=== PATIENT | male | born 1975 | race African-American/Black ===

== ENCOUNTER 2017-08-30 11:00 | Emergency (ER) | payer SELFPAY ==
[~2017-08-30] VITALS: Ht 172.7 cm; Wt 68.2 kg
[~2017-08-30 11:00] MED LIST: CELEXA40 MG PO; CITALOPRAM40 MG PO; FLEXERIL10 MG PO; NEXIUM 40MG40 MG PO; NO HOME MEDICATIONS; NORCO 325 MG-7.1 TAB PO; PENICILLIN V250 MG PO; ZITHROMAX Z PA250 MG PO
[2017-08-30 11:06] VITALS: BP 153/99; PULSE 66; TEMP 98.2
[2017-08-30] MEDS ORDERED: ULTRAM 50MG TAB50 MG PO (11:36)
[2017-08-30] MEDS ORDERED: AMOXICILLIN 50500 MG PO (11:36)
== END 2017-08-30 11:43 | disposition home or self-care (01) ==
LOC: COL.ER 11:00
DX: K02.9 Dental caries, unspecified (principal); F32.9 Major depressive disorder, single episode, unspecified; F17.210 Nicotine dependence, cigarettes, uncomplicated